=== PATIENT | male | born 1960 | race Two or more races ===

== ENCOUNTER 2021-11-15 22:59 | Emergency (ER) | payer OTHER ==
[~2021-11-15] VITALS: Ht 177.8 cm; Wt 90.7 kg
[2021-11-15 23:37] VITALS: BP 140/88
[2021-11-16] MEDS ORDERED: diphenhydrAMINE HCL 50 MG CAPSULE ONE (00:22)
[2021-11-16] MEDS ORDERED: diphenhydrAMINE HCL 25 MG CAPSULE PO ONE (00:30)
== END 2021-11-16 00:35 | disposition home or self-care (01) ==
LOC: ER 23:01
DX: T63.441A Toxic effect of venom of bees, accidental (unintentional), initial encounter (principal); R06.02 Shortness of breath; I10 Essential (primary) hypertension; Z91.030 Bee allergy status; Z60.2 Problems related to living alone; Y92.89 Other specified places as the place of occurrence of the external cause
CPT/HCPCS: 99282; Q0163